=== PATIENT | male | born 1950 | race Two or more races ===

== ENCOUNTER 2022-11-10 16:20 | Inpatient (IN) | payer OTHER ==
[~2022-11-10] VITALS: Ht 165.1 cm; Wt 57.2 kg
== END 2022-11-13 10:53 | disposition home or self-care (01) | DRG 809 ==
LOC: ER 16:20 → MEDJ 19:53
PROVIDERS: ADMIT Internal Medicine; ATTEND Internal Medicine
PROC: 30233N1 Transfusion of Nonautologous Red Blood Cells into Peripheral Vein, Percutaneous Approach (ICD-10-PCS; principal; 2022-11-11)
PROC: BW211ZZ Computerized Tomography (CT Scan) of Abdomen and Pelvis using Low Osmolar Contrast (ICD-10-PCS; 2022-11-11)
DX: D61.818 Other pancytopenia (principal); C95.00 Acute leukemia of unspecified cell type not having achieved remission; D64.9 Anemia, unspecified; D69.6 Thrombocytopenia, unspecified

== ENCOUNTER 2023-02-01 01:32 | Emergency (ER) | payer OTHER ==
[~2023-02-01] VITALS: Ht 162.6 cm; Wt 53.5 kg
== END 2023-02-01 04:01 ==
LOC: ER 01:32
DX: R53.81 Other malaise (principal); R53.1 Weakness

== ENCOUNTER 2023-02-24 23:18 | Inpatient (IN) | payer OTHER ==
[~2023-02-24] VITALS: Ht 162.6 cm; Wt 54.4 kg
--- NOTE | 2023-02-25 00:04 | NUR ---
PACIENTE REFIERE DEBILIDAD Y [facility]. POSEE LABORATORIO CON HGB 7.0.
--- NOTE | 2023-02-25 01:25 | NUR ---
PTE ALERTA Y ORIENTADO X3 EN CAMA CON BARANDAS ELEVADAS ACOMPANADO DE FAMILIAR. SE ALLYSSA MUESTRAS DE LAB. MELCHOR ORDEN MEDICA BAJO MEDIDAS ASEPTICAS. SE CANALIZA AREA SKYLA DE EDEMA Y DE ENROJECIMIENTO. SE EDUCA A PTE/FAMILIAR SOBRE TRATAMIENTO MEDICO. PTE MANEJADO POR ELIZABETH.
--- NOTE | 2023-02-25 03:28 | NUR ---
SE NOTIFICA JACQUELINEOR ERENDIRA A DR. BURKETT EL MISMO [place]
--- NOTE | 2023-02-25 07:52 | NUR ---
SE RECIBE PTE ALERTA Y DESORIENTADO X3. EN AREA DE ISO, EN CAMA BAJA CON BARANDAS ELEVADAS POR SEGURIDAD. SE OBSERVA CON BUEN PATRON RESPIRATORIO. CANALIZADO EN LA #18, PATENTE, SKYLA DE EDEMA Y ERITEMA, RECIBIENDO IV FLUIDS.
--- NOTE | 2023-02-25 13:23 | NUR ---
PTE ALERTA ORIENTADO X3 EN CAMA CON BARANDAS ELEVADAS POR GLORIA SEGURIDAD EN COMPANIA DE FAMILIAR.SE ALLYSSA TUBOS PILOTOS SE REALIZA REQUISION DE 2 UNIDADES DE PRBC FRACCIONADAS EN HOLD POR ORDEN MEDICA DE .SE REALIZA VENOPUNCION EN ANTEBRAZO ALON CON ANGIO#20.
--- NOTE | 2023-02-25 14:49 | NUR ---
SE RECIBE PACIENTE DE TURNO ANTERIOR ALERTA Y ORIENTADO X3, UBICADO EN CAMA #14, A NIVEL MAS BAJO, BANDE DE IDENTIFICACION COLOCADA. IV EN BRAZO LT CON ANGIO #18 Y #20, PATENTE, SKYLA DE EDEMA O ERITEMA, RECIBIEDNO RL @ 85ML/HR. PENDIENTE CONSULTA CON DR. HAMLIN
== END 2023-02-27 15:18 | disposition home or self-care (01) | DRG 842 ==
LOC: ER 23:18 → SURH 02-25 17:19
PROVIDERS: General Practice; ADMIT Internal Medicine; ATTEND Internal Medicine
PROC: 30233R1 Transfusion of Nonautologous Platelets into Peripheral Vein, Percutaneous Approach (ICD-10-PCS; 2023-02-25)
PROC: 8E0ZXY6 Isolation (ICD-10-PCS; 2023-02-25)
PROC: 4A12X4Z Monitoring of Cardiac Electrical Activity, External Approach (ICD-10-PCS; 2023-02-25)
PROC: 30233N1 Transfusion of Nonautologous Red Blood Cells into Peripheral Vein, Percutaneous Approach (ICD-10-PCS; principal; 2023-02-26)
DX: C83.13 Mantle cell lymphoma, intra-abdominal lymph nodes (principal); D64.89 Other specified anemias; D63.0 Anemia in neoplastic disease; D69.59 Other secondary thrombocytopenia; Z92.21 Personal history of antineoplastic chemotherapy